=== PATIENT | male | born 1980 | race Caucasian/White ===

== ENCOUNTER 2017-11-13 09:32 | Inpatient (IN) | payer OTHER ==
[~2017-11-13] VITALS: Ht 170.2 cm; Wt 117.5 kg
[~2017-11-13 09:32] MED LIST: AMLODIPINE BESY10 M1 PO; AMLODIPINE10 MG PO; BENAZEPRIL20 MG PO; CALCIUM1 CAP; CALCIUM1 CAP PO; CLONAZEPAM PO; CLONAZEPAM0.5 MG PO; CYMBALTA30 M1 PO; FENOFIBRATE54 MG PO; FLOVENT DI100 MCG/A1 INH; GABAPENTIN100 M2; GABAPENTIN100 MG PO; HUMI; IBU800 M1 PO; INSULIN; LIO10 PO; LOFIBRA54 MG PO; LOP600 PO; LORAZEPAM1 PO; LOT20 PO; NEU100 PO; NOR10 PO; NORCO1 TA1 PO; PANTOPRAZOLE40 MG PO; PRA20 PO; PRA40 PO; PRAVASTATIN40 MG PO; PRILOSEC40 MG PO; PROTONIX TR40 MG PO; SEREVENT D0.046 MG/1 IH; SINGULAIR10 MG PO; SOM350 PO; THE MEDICINE S400 IU; TRAZODONE HCL50 PO; TRAZODONE HYDR100 MG PO; TRAZODONE HYDR150 MG PO; TRAZODONE150 MG PO; TRE400 PO; VENTOLIN H0.09 MG/A1 INH; VIC PO; VICODIN1 TAB PO; VITAMIN D PO; ZOL100 PO; ZOL50 PO
[2017-11-13 09:41] VITALS: Ht 170.2 cm; Wt 117.5 kg
[2017-11-13 10:18] LABS: BASOPHIL % 0.4 % (0-2); PLATELET COUNT 267 x10^3mcL (130-400); RED CELL DISTRIBUTION WIDTH 12.8 % (11.5-14.5)
[2017-11-13 10:29] LABS: microscopic required? YES; urine erythrocyte NEGATIVE (NEGATIVE)
[2017-11-13 10:43] LABS: CALCIUM 8.7 mg/dL (8.5-10.1); CARBON DIOXIDE 28.3 mmol/L (21-32); CHLORIDE SERUM 101 mmol/L (98-107); CREATININE SERUM 1.1 mg/dL (0.7-1.3); GFR1 > 60 mL/min; GLUCOSE SERUM 278 mg/dL (74-106); POTASSIUM SERUM 4.2 mmol/L (3.5-5.1); SODIUM SERUM 137 mmol/L (136-145)
[2017-11-13 10:47] LABS: AMPHETAMINE QUAL UR NONE DETECTED (NEG <=1000)
[2017-11-13 10:54] LABS: ALKALINE PHOSPHATASE 136 U/L (46-116); ALT/SGPT 35 U/L (16-63); AMYLASE 34 U/L (25-115); AST/SGOT 15 U/L (15-37); BILIRUBIN TOTAL 0.1 mg/dL (0.20-1.00); CHOLESTEROL 184 mg/dL (<200); HDL CHOLESTEROL 35 mg/dL (40-60); LIPASE 63 IU/L (73-393); TOTAL PROTEIN, SERUM 7.7 g/dL (6.4-8.2)
[2017-11-13 11:01] LABS: ALBUMIN 3.3 g/dL (3.4-5.0); T4(THYROXINE) 4.5 ug/dL (4.7-13.3)
[2017-11-13] MEDS ORDERED: MIRTAZAPINE15 M2 PO (12:55)
[2017-11-13] MEDS ORDERED: BUSPIRONE HCL15 MG PO (12:55)
[2017-11-13] MEDS ORDERED: RISPERIDONE2 M1 PO (12:55)
[2017-11-13 12:56] VITALS: BP 141/82; BP 141/87
[2017-11-13] MEDS ORDERED: NATURAL ZINC50 MG PO (12:56)
[2017-11-13] MEDS ORDERED: ASPIR LOW81 MG PO (12:57)
[2017-11-13] MEDS ORDERED: TYLENOL WITH CO1 TA2 PO (12:57)
[2017-11-13] MEDS ORDERED: VALSARTAN160 MG PO (12:57)
[2017-11-13] MEDS ORDERED: ALLERGY10 M2 PO (12:57)
[2017-11-13] MEDS ORDERED: HYDROCHLOROTHIA25 MG PO (12:58)
[2017-11-13] MEDS ORDERED: LOP600 PO (13:45)
[2017-11-13 13:54] LABS: CHOLESTEROL/HDL RATIO 5.1; PHOSPHOROUS 2.8 mg/dL (2.5-4.9)
[2017-11-13 17:08] VITALS: BP 135/80
== END 2017-11-13 19:07 | disposition left against medical advice (07) | DRG 48 ==
LOC: ED 09:32 → DU 12:02
PROVIDERS: Emergency Medicine; Family Medicine
DX: G90.9 Disorder of the autonomic nervous system, unspecified (principal); E11.51 Type 2 diabetes mellitus with diabetic peripheral angiopathy without gangrene; I10 Essential (primary) hypertension; J45.909 Unspecified asthma, uncomplicated; E78.5 Hyperlipidemia, unspecified; F41.9 Anxiety disorder, unspecified; F32.9 Major depressive disorder, single episode, unspecified; E78.00 Pure hypercholesterolemia, unspecified; E66.01 Morbid (severe) obesity due to excess calories; E11.319 Type 2 diabetes mellitus with unspecified diabetic retinopathy without macular edema; K21.9 Gastro-esophageal reflux disease without esophagitis; E11.65 Type 2 diabetes mellitus with hyperglycemia; G43.909 Migraine, unspecified, not intractable, without status migrainosus; Z79.899 Other long term (current) drug therapy; Z80.3 Family history of malignant neoplasm of breast; Z88.6 Allergy status to analgesic agent; Z83.3 Family history of diabetes mellitus; Z82.49 Family history of ischemic heart disease and other diseases of the circulatory system; Z68.39 Body mass index [BMI] 39.0-39.9, adult
CPT/HCPCS: 82962; 83880; G0480; J1100; J1885; J7030; Q0092